=== PATIENT | female | born 1935 | race Caucasian/White ===

== ENCOUNTER 2022-01-14 16:04 | Emergency (ER) | payer MEDICARE ==
[~2022-01-14] VITALS: Wt 49.9 kg
== END 2022-01-14 22:22 | disposition home or self-care (01) ==
LOC: ED 16:04
DX: S70.02XA Contusion of left hip, initial encounter (principal); M79.672 Pain in left foot; Z88.8 Allergy status to other drugs, medicaments and biological substances; W18.39XA Other fall on same level, initial encounter; Y93.89 Activity, other specified; Y92.89 Other specified places as the place of occurrence of the external cause; Y99.8 Other external cause status